=== PATIENT | female | born 1975 | race Caucasian/White ===

== ENCOUNTER 2023-06-27 16:21 | Emergency (ER) | payer SELFPAY ==
[2023-06-27] MEDS ORDERED: Ondansetron ODT 4 MG TAB ONE (17:13)
[2023-06-27] MEDS ORDERED: Morphine 4 MG/ML VIAL ONE (17:13)
[2023-06-27] MEDS ORDERED: CEFAZOLIN 1 GM VIAL ONE (17:13)
[2023-06-27] MEDS ORDERED: Sterile Water 10 ML ONE (17:14)
== END 2023-06-27 17:31 | disposition short-term general hospital (02) ==
LOC: BURERS 16:21
DX: S68.022A Partial traumatic metacarpophalangeal amputation of left thumb, initial encounter (principal); S61.217A Laceration without foreign body of left little finger without damage to nail, initial encounter; W54.0XXA Bitten by dog, initial encounter; Y93.89 Activity, other specified
CPT/HCPCS: 96372; 99285; J0690; J2270; Q0162